=== PATIENT | male | born 1945 | race Caucasian/White ===

== ENCOUNTER 2018-04-18 09:52 | Emergency (ER) | payer MEDICARE, SELFPAY ==
[2018-04-18 09:55] VITALS: BP 136/68; PULSE 70; RESP 20; TEMP 36.9; O2SAT 95
--- NOTE | 2018-04-18 10:57 | W.ED.GENAD ---
Discharge Plan Disposition Patient Disposition: HOME Condition: Stable Discharge Details Chief Complaint: RespSymp Clinical Impression: Sinusitis, URI (upper respiratory infection) Primary Care Provider: TIKA,LOCAL ED Provider: Fidencio Cali Home Meds and New Rx's Prescriptions: New doxycycline hyclate 100 mg capsule 100 mg PO BID Qty: 14 RF: 0 benzonatate 200 mg capsule 200 mg PO TID PRN (Reason: cough) Qty: 30 RF: 0 No Action atorvastatin 40 mg Tablet 40 mg PO HS RF: 0 Discharge Instructions Instructions: Sinusitis (ED), Upper Respiratory Infection (ED) Additional Instructions: Please continue to take [id number] Mucinex and use acetaminophen/Motrin as needed for discomfort or fever. Get plenty of rest and stay well-hydrated during illness. Take anabolic as prescribed and please complete full course of antibiotic and if not improving follow-up with your primary care provider for reassessment. Return for any significant change or worsening of your symptoms Referrals: [facility] Emergency Dept. [Outside] (As needed for reassessment or if not improved) Medical Decision Making Patient presenting to the emergency department for 10 days of cold symptoms. He states nasal congestion, sore throat, cough, and generalized malaise. He has been using ubsi-xel-[id number] cough and cold medication but given that he is use these for 7 days and had no signs of improvement and even within the past 24 hours is still had a mild fever he is presenting to the emergency department. Patient does state history of non-Hodgkin's lymphoma which is in relative remission and that he only receives maintenance chemotherapy every 6 months and has had not had any dose since November. patient has normal vital signs and is in no acute severe distress, appears mildly ill, and is otherwise nontoxic. Physical exam shows maxillary and ethmoid sinus tenderness to palpation otherwise exam findings consistent with URI. Patient has clear lung sounds. Given duration of illness and not having any improvement concern for possible bacterial etiology of cold so place patient on doxycycline twice daily for 1 week and prescribed Tessalon Perles as an antitussive. Patient encouraged to return for any new or significant worsening of symptoms otherwise follow-up with primary care for reassessment 1 week. After discussion of diagnosis and plan of care patient has no further needs, questions, or concerns and states clear understanding to return to the emergency department for any worsening symptoms. HPI General Mode of arrival: ambulatory. Date/Time Provider Initiated Documentation: 04/18/18 10:55. Limitations to Documentation: no limitations. Information obtained by: RN notes reviewed. History of Present Illness 72 year old M presents to the emergency department with the chief complaint of Cough cold symptoms, described as moderate, with intensity rated at 7. Quality is described as aching, and is localized to the head. Patient started experiencing this day(s) (10) and it has been constant. No relieving factors improve symptom(s), No exacerbating factors reported . Patient did receive the following treatments prior to arrival, other (TheraFlu, Mucinex) Related Data Home Medications Medication Instructions Recorded Confirmed atorvastatin 40 mg PO HS 04/18/18 04/18/18 benzonatate 200 mg PO TID PRN #30 cap 04/18/18 doxycycline hyclate 100 mg PO BID #14 cap 04/18/18 Previous Rx's Medication Instructions Recorded benzonatate 200 mg PO TID PRN #30 cap 04/18/18 doxycycline hyclate 100 mg PO BID #14 cap 04/18/18 Allergies Allergy/AdvReac Type Severity Reaction Status Date / Time Penicillins Allergy Unverified 04/18/18 10:00 General Stated Complaint: RespSymp CRICKET: 2 Review of Systems Constitutional Reports body ache(s), Reports chills, Reports fever(s), Reports headache(s) and Reports malaise Eyes Denies eye discharge ENT Reports headache(s), Reports nasal congestion, Reports nasal discharge, Denies neck pain, Reports sinus pressure, Reports sore throat and Denies throat swelling Cardiovascular Denies chest pain and Denies dyspnea Respiratory Reports change in phlegm color, Reports cough, Reports excessive phlegm production and Denies dyspnea Gastrointestinal Denies diarrhea, Reports nausea and Denies vomiting Musculoskeletal Denies joint swelling and Denies neck pain Integumentary/Breasts Denies rash Neurologic Reports headache(s) Allergic/Immunologic Denies throat swelling [facility] Medical History Glaucoma (Chronic) Non Hodgkin's lymphoma (Chronic) Social History Smoking/Tobacco Use Status: Never Exam Const General: cooperative, comfortable and no acute distress Orientation: alert and awake HENIL Head: normal to inspection, normocephalic and atraumatic Ears: hearing grossly normal bilaterally and TM's normal bilaterally General nose exam: external nose normal Face and sinus: no erythema and sinus tenderness ethmoid and maxillary Mouth: oral mucosae normal, no drooling, no muffled voice and no trismus Throat: posterior oropharynx normal, tonsils normal and uvula midline Neck Neck: normal visual inspection, full ROM, no lymphadenopathy, no meningeal signs, trachea midline and supple Resp Effort & Inspection: normal respiratory effort, able to speak in complete sentences and cough Quality of cough: dry Auscultation: clear to auscultation bilaterally Cardio Rate: regular rate Rhythm: regular rhythm Heart Sounds: S1 normal, S2 normal, normal S1 and S2, no click, no gallops, no murmurs and no rubs Skin General skin exam: no rashes or lesions noted and dry skin (warm) Neuro General: alert, awake, oriented x3, gait normal and moves all extremities Cognition: normal cognition Speech: speech normal Course Vital Signs Temperature 36.9 C 04/18/18 09:55 Pulse 70 04/18/18 09:55 Respiratory Rate 20 04/18/18 09:55 Blood Pressure 136/68 04/18/18 09:55 Pulse Oximetry 95 04/18/18 09:55 Temperature 36.9 C 04/18/18 09:55 Temperature Source Skin 04/18/18 09:55 Pulse 70 04/18/18 09:55 Respiratory Rate 20 04/18/18 09:55 Respiratory Effort 04/18/18 09:59 Blood Pressure 136/68 04/18/18 09:55 Pulse Oximetry 95 04/18/18 09:55 Oxygen Delivery Method Room Air 04/18/18 09:55 Oxygen Flow Rate 0 04/18/18 09:55
--- NOTE | 2018-04-18 11:03 | ED.GENADUL_ITS ---
Discharge Plan Disposition Patient Disposition: HOME Condition: Stable Discharge Details Chief Complaint: RespSymp Clinical Impression: Sinusitis, URI (upper respiratory infection) Primary Care Provider: TIKA,LOCAL ED Provider: Fidencio Cali Home Meds and New Rx's Prescriptions: New doxycycline hyclate 100 mg capsule 100 mg PO BID Qty: 14 RF: 0 benzonatate 200 mg capsule 200 mg PO TID PRN (Reason: cough) Qty: 30 RF: 0 No Action atorvastatin 40 mg Tablet 40 mg PO HS RF: 0 Discharge Instructions Instructions: Sinusitis (ED), Upper Respiratory Infection (ED) Additional Instructions: Please continue to take [id number] Mucinex and use acetaminophen/Motrin as needed for discomfort or fever. Get plenty of rest and stay well-hydrated during illness. Take anabolic as prescribed and please complete full course of antibiotic and if not improving follow-up with your primary care provider for reassessment. Return for any significant change or worsening of your symptoms Referrals: [facility] Emergency Dept. [Outside] (As needed for reassessment or if not improved) Medical Decision Making Patient presenting to the emergency department for 10 days of cold symptoms. He states nasal congestion, sore throat, cough, and generalized malaise. He has been using solt-kxh-zkekaev cough and cold medication but given that he is use these for 7 days and had no signs of improvement and even within the past 24 hours is still had a mild fever he is presenting to the emergency department. Patient does state history of non-Hodgkin's lymphoma which is in relative remission and that he only receives maintenance chemotherapy every 6 months and has had not had any dose since November. patient has normal vital signs and is in no acute severe distress, appears mildly ill, and is otherwise nontoxic. Physical exam shows maxillary and ethmoid sinus tenderness to palpation otherwise exam findings consistent with URI. Patient has clear lung sounds. Given duration of illness and not having any improvement concern for possible bacterial etiology of cold so place patient on doxycycline twice daily for 1 week and prescribed Tessalon Perles as an antitussive. Patient encouraged to return for any new or significant worsening of symptoms otherwise follow-up with primary care for reassessment 1 week. After discussion of diagnosis and plan of care patient has no further needs, questions, or concerns and states clear understanding to return to the emergency department for any worsening symptoms. HPI General Mode of arrival: ambulatory . Date/Time Provider Initiated Documentation: 04/18/18 10:55 . Limitations to Documentation: no limitations . Information obtained by: RN notes reviewed . History of Present Illness 72 year old M presents to the emergency department with the chief complaint of Cough cold symptoms, described as moderate, with intensity rated at 7. Quality is described as aching, and is localized to the head. Patient started experiencing this day(s) (10) and it has been constant. No relieving factors improve symptom(s), No exacerbating factors reported . Patient did receive the following treatments prior to arrival, other (TheraFlu , Mucinex) Related Data Home Medications Medication Instructions Recorded Confirmed atorvastatin 40 mg PO HS 04/18/18 04/18/18 benzonatate 200 mg PO TID PRN #30 cap 04/18/18 doxycycline hyclate 100 mg PO BID #14 cap 04/18/18 Previous Rx's Medication Instructions Recorded benzonatate 200 mg PO TID PRN #30 cap 04/18/18 doxycycline hyclate 100 mg PO BID #14 cap 04/18/18 Allergies Allergy/AdvReac Type Severity Reaction Status Date / Time Penicillins Allergy Unverified 04/18/18 10:00 General Stated Complaint: RespSymp CRICKET: 2 Review of Systems Constitutional Reports body ache(s), Reports chills, Reports fever(s), Reports headache(s) and Reports malaise Eyes Denies eye discharge ENT Reports headache(s), Reports nasal congestion, Reports nasal discharge, Denies neck pain, Reports sinus pressure, Reports sore throat and Denies throat swelling Cardiovascular Denies chest pain and Denies dyspnea Respiratory Reports change in phlegm color, Reports cough, Reports excessive phlegm production and Denies dyspnea Gastrointestinal Denies diarrhea, Reports nausea and Denies vomiting Musculoskeletal Denies joint swelling and Denies neck pain Integumentary/Breasts Denies rash Neurologic Reports headache(s) Allergic/Immunologic Denies throat swelling [facility] Medical History Glaucoma (Chronic) Non Hodgkin's lymphoma (Chronic) Social History Smoking/Tobacco Use Status: Never Exam Const General: cooperative, comfortable and no acute distress Orientation: alert and awake HENIL Head: normal to inspection, normocephalic and atraumatic Ears: hearing grossly normal bilaterally and TM's normal bilaterally General nose exam: external nose normal Face and sinus: no erythema and sinus tenderness ethmoid and maxillary Mouth: oral mucosae normal, no drooling, no muffled voice and no trismus Throat: posterior oropharynx normal, tonsils normal and uvula midline Neck Neck: normal visual inspection, full ROM, no lymphadenopathy, no meningeal signs , trachea midline and supple Resp Effort & Inspection: normal respiratory effort, able to speak in complete sentences and cough Quality of cough: dry Auscultation: clear to auscultation bilaterally Cardio Rate: regular rate Rhythm: regular rhythm Heart Sounds: S1 normal, S2 normal, normal S1 and S2, no click, no gallops, no murmurs and no rubs Skin General skin exam: no rashes or lesions noted and dry skin (warm) Neuro General: alert, awake, oriented x3, gait normal and moves all extremities Cognition: normal cognition Speech: speech normal Course Vital Signs Temperature 36.9 C 04/18/18 09:55 Pulse 70 04/18/18 09:55 Respiratory Rate 20 04/18/18 09:55 Blood Pressure 136/68 04/18/18 09:55 Pulse Oximetry 95 04/18/18 09:55 Temperature 36.9 C 04/18/18 09:55 Temperature Source Skin 04/18/18 09:55 Pulse 70 04/18/18 09:55 Respiratory Rate 20 04/18/18 09:55 Respiratory Effort 04/18/18 09:59 Blood Pressure 136/68 04/18/18 09:55 Pulse Oximetry 95 04/18/18 09:55 Oxygen Delivery Method Room Air 04/18/18 09:55 Oxygen Flow Rate 0 04/18/18 09:55
[2018-04-18] MEDS: Benzonatate 100 MG CAP PO (11:08)
[2018-04-18] MEDS: Doxycycline Hyclate 100 MG CAP PO (11:08)
== END 2018-04-18 11:22 | disposition home or self-care (01) ==
PROVIDERS: Emergency Provider Nurse Practitioner Family
DX: J01.90 Acute sinusitis, unspecified (principal); J06.9 Acute upper respiratory infection, unspecified
CPT/HCPCS: 99283

== ENCOUNTER 2021-11-11 09:38 | Emergency (ER) | payer MEDICARE, SELFPAY ==
--- NOTE | 2021-11-11 09:45 | DI.CT_ITS ---
Exam(s) CT HEAD WO EXAM: CT HEAD WO CLINICAL HISTORY: trauma. TECHNIQUE: Imaging Protocol: Axial computed tomography images with coronal and sagittal reformatted images were created and reviewed COMPARISON: No exams were available for comparison FINDINGS: There is laceration and soft tissue swelling over the lateral aspect of the left orbit. No subjacen t fracture evident. Nasal bone deformity is consistent with probable nonacute nasal fracture site. There is no evidence of intracranial hemorrhage, mass effect, or shift of midline structures. There are no extra-axial fluid collections. The ventricles are not enlarged or shifted and there is no blo od within the ventricular system nor within the basal cisterns. IMPRESSION: No acute intracranial findings on this noninfused CT scan of the brain. Left periorbital laceration-hematoma. No acute fractures. Nasal bone deformity is probably chronic nonacute fracture. RADIATION DOSE DELIVERED: 760.35mGy.cm Total DLP DATA REPOSITORY: All CT scans at this facility are submitted to the National Radiology Data Registry (NRDR) Dose Index Registry (DIR) with the [employer] ([employer]). RADIATION OPTIMIZATION: All CT scans at this facility use at least one of these dose optimization te chniques: automated exposure control; mA and/or kV adjustment per patient size (includes targeted exa ms where dose is matched to clinical indication); or iterative reconstruction.
--- NOTE | 2021-11-11 09:48 | W.ED.GENAD ---
Discharge Plan Disposition Patient Disposition: HOME Discharge Details Clinical Impression: Fall, Laceration of face Primary Care Provider: Leonor,Local ED Provider: Bautista Menendez Home Meds and New Rx's Prescriptions: New doxycycline monohydrate 100 mg capsule 100 mg PO BID Qty: 14 0RF No Action atorvastatin 40 mg Tablet 40 mg PO HS doxycycline hyclate 100 mg capsule 100 mg PO BID Qty: 14 0RF benzonatate 200 mg capsule 200 mg PO TID PRN (Reason: cough) Qty: 30 0RF Discharge Instructions Instructions: Facial Laceration (ED) Additional Instructions: Please take the antibiotic as prescribed. Apply ice to the affected area few times a day for comfort and to decrease inflammation. You may take Tylenol or Motrin if he has pain. Suture removal in 7 days . Return Medical Decision Making 76-year-old who sustained a fall last night. he did sustain a laceration to the left catholic.. please see procedure note for closure of this wound. Mechanical fall. No syncope. no concussion symptoms. Negative Head CT. Isolated injury to the rt tempotral area. HPI General Date/Time Provider Initiated Documentation: 11/11/21 09:48. HPI Narrative: 76-year-old gentleman presents to the emergency room for evaluation of left-sided head laceration. He states that approximately midnight last night he got up to go to the bathroom. He believes that he was unsteady on his feet and tripped going into the bathroom hitting the left side of his head, catholic area, onto the door handle. He does not believe that he lost consciousness. He proceeded to using the bathroom and went back to bed. Upon waking this morning he noticed a laceration. He did feel mildly nauseous when he was cleaning it. Otherwise he has had no headaches. No focal weakness, no paresthesias. No palpitations or shortness of breath. No exacerbating factors. Bleeding controlled with pressure. Related Data Home Medications Medication Instructions Recorded Confirmed atorvastatin 40 mg tablet 40 mg PO HS 04/18/18 11/11/21 benzonatate 200 mg capsule 200 mg PO TID PRN cough #30 caps 04/18/18 doxycycline hyclate 100 mg capsule 100 mg PO BID #14 caps 04/18/18 doxycycline monohydrate 100 mg 100 mg PO BID #14 caps 11/11/21 capsule Previous Rx's Medication Instructions Recorded benzonatate 200 mg capsule 200 mg PO TID PRN cough #30 caps 04/18/18 doxycycline hyclate 100 mg capsule 100 mg PO BID #14 caps 04/18/18 doxycycline monohydrate 100 mg 100 mg PO BID #14 caps 11/11/21 capsule Allergies Allergy/AdvReac Type Severity Reaction Status Date / Time Penicillins Allergy Unverified 11/11/21 09:52 General CRICKET: 2 Review of Systems Narrative: Constitutional negative for fever or chills. Negative for malaise and fatigue. HEENT negative Cardiovascular no palpitation no shortness of breath, no chest pain Respiratory no cough no shortness of breath GI see HPI MSK no myalgias or arthralgias Skin see HPI Neuro no headaches no focal weakness no paresthesias Hematological not on blood thinners Allergic neg PFSH All Active Problems (Updated 11/11/21 @ 10:56 by Bautista Menendez MD) Fall (Acute) Laceration of face (Acute) Medical History (Updated 11/11/21 @ 10:56 by Bautista Menendez MD) Glaucoma Non Hodgkin's lymphoma Social History Smoking/Tobacco Use Status: Never Smoking risk assessment performed?: Yes Alcohol Intake: current Alcohol Intake frequency: 0-2 drinks per day Drug use: Never Substance use type: does not use Do you feel safe at home: Yes Do you feel safe in your relationship?: Yes Exam Narrative Exam Narrative: Awake alert oriented x3 calm cooperative no acute distress pleasant PERRLA EOMI MMM anicteric, linear 2 cm laceration on the temporal area on the left. No active bleeding. Supple neck Respiratory normal work of breathing. Cardiovascular normal cap refill Skin see HPI Neuro 2-12 grossly intact. Normal gait. Extremities however 5 bilateral strength Psych mood and affect normal Procedures Laceration Laceration 1: Site: face (left temporal area) Size (cm): 2.5 Local Anesthetic: Lidocaine 2% Amount of anesthesia used (mL): 3 Pre-repair: wound explored and irrigated extensively Skin layer closed with: other (prolene) Size (cm): 6-0 Number of sutures: 4
[2021-11-11 09:49] VITALS: BP 176/75; PULSE 54; TEMP 36.1; O2SAT 99
--- NOTE | 2021-11-11 11:04 | DI.VRAD_ITS ---
PROCEDURE INFORMATION: Exam: CT Head Without Contrast Exam date and time: 11/11/2021 10:15 AM Age: 76 years old Clinical indication: Other: Trauma, fall hit left frontal lobe TECHNIQUE: Imaging protocol: Computed tomography of the head without contrast. Radiation optimization: All CT scans at this facility use at least one of these dose optimization techniques: automated exposure control; mA and/or kV adjustment per patient size (includes targeted exams where dose is matched to clinical indication); or iterative reconstruction. COMPARISON: No relevant prior studies available. FINDINGS: Brain: No acute intracranial hemorrhage, midline shift or mass effect. Age-related atrophy. Periventricular and subcortical white matter hypodensities, nonspecific and likely related to chronic microvascular ischemic changes. Cerebral ventricles: Ventricular enlargement secondary to age-related atrophy. Paranasal sinuses: Minimal paranasal sinus disease. Mastoid air cells: Visualized mastoid air cells are well aerated. Bones/joints: No acute abnormality. Soft tissues: Left periorbital laceration/hematoma. Vasculature: Intracranial arterial calcifications. IMPRESSION: No acute intracranial abnormality. Left periorbital laceration/hematoma. No acute fracture. Additional findings as discussed above. Dictated and Authenticated by: Melissa Hooper MD. Ordering:JUAN MANUEL Baum MD
[2021-11-11 11:25] VITALS: BP 132/86; PULSE 70; RESP 18; TEMP 37; O2SAT 95
== END 2021-11-11 11:14 | disposition home or self-care (01) ==
PROVIDERS: Emergency Provider Emergency Medicine
DX: S01.81XA Laceration without foreign body of other part of head, initial encounter (principal); W01.198A Fall on same level from slipping, tripping and stumbling with subsequent striking against other object, initial encounter
CPT/HCPCS: 12011; 99284; 70450; 99283

== ENCOUNTER 2021-11-18 13:05 | Emergency (ER) | payer MEDICARE, SELFPAY ==
[2021-11-18 13:09] VITALS: BP 138/63; PULSE 52; RESP 16; TEMP 36.4; O2SAT 97
--- NOTE | 2021-11-18 13:14 | ED.GENADUL_ITS ---
Discharge Plan Disposition Patient Disposition: HOME Condition: Stable Discharge Details Clinical Impression: Encounter for removal of sutures Primary Care Provider: Quincy Culver ED Provider: Bennett Dozier Home Meds and New Rx's Prescriptions: Continued atorvastatin 40 mg Tablet 40 mg PO HS doxycycline hyclate 100 mg capsule 100 mg PO BID Qty: 14 0RF benzonatate 200 mg capsule 200 mg PO TID PRN (Reason: cough) Qty: 30 0RF doxycycline monohydrate 100 mg capsule 100 mg PO BID Qty: 14 0RF Discharge Instructions Additional Instructions: If you have spreading redness, yellow/white discharge or severe pain return to the emergency department Medical Decision Making 76 yo male here for suture removal. He had them placed 7 days ago just lateral to the left orbit. Denies pain, redness, discharge. He has a well healed wound with sutures in place lateral to the left orbit, no tenderness, no erythema, no discharge noted. Nursing will remove the stitches and return precautions given Differential Diagnosis Differential Diagnosis: suture removal Medical Records Medical records reviewed: Yes I reviewed the patient's medical records. HPI General Mode of arrival: ambulatory . Date/Time Provider Initiated Documentation: 11/18/21 13:06 . Limitations to Documentation: no limitations . Information obtained by: patient . History of Present Illness 76 year old M presents to the emergency department with the chief complaint of suture removal, described as moderate, Patient started experiencing this day(s) (7) and it has been constant. No relieving factors improve symptom(s), No exacerbating factors reported . Patient notes no other symptoms.. Related Data Home Medications Medication Instructions Recorded Confirmed atorvastatin 40 mg tablet 40 mg PO HS 04/18/18 11/11/21 benzonatate 200 mg capsule 200 mg PO TID PRN cough #30 caps 04/18/18 doxycycline hyclate 100 mg capsule 100 mg PO BID #14 caps 04/18/18 doxycycline monohydrate 100 mg 100 mg PO BID #14 caps 11/11/21 capsule Previous Rx's Medication Instructions Recorded benzonatate 200 mg capsule 200 mg PO TID PRN cough #30 caps 04/18/18 doxycycline hyclate 100 mg capsule 100 mg PO BID #14 caps 04/18/18 doxycycline monohydrate 100 mg 100 mg PO BID #14 caps 11/11/21 capsule Allergies Allergy/AdvReac Type Severity Reaction Status Date / Time Penicillins Allergy Unverified 11/18/21 13:12 General Stated Complaint: SutureRem CRICKET: 5 Review of Systems All systems reviewed & are unremarkable except as noted in HPI and below Constitutional Constitutional: Denies chills, Denies fever(s) and Denies weakness Eyes Eyes: Denies loss of vision Cardiovascular Cardiovascular: Denies chest pain and Denies dyspnea Respiratory Respiratory: Denies dyspnea Gastrointestinal Gastrointestinal: Denies vomiting Integumentary/Breasts Skin/Breast: Denies rash Neurologic Neurologic: Denies loss of vision and Denies weakness PFSH All Active Problems (Updated 11/18/21 @ 13:15 by Bennett Dozier MD) Fall (Acute) Laceration of face (Acute) Encounter for removal of sutures (Acute) Medical History (Updated 11/18/21 @ 13:15 by Bennett Dozier MD) Glaucoma Non Hodgkin's lymphoma Social History Smoking/Tobacco Use Status: Never Smoking risk assessment performed?: Yes Alcohol Intake: current Alcohol Intake frequency: 0-2 drinks per day Drug use: Never Substance use type: does not use Do you feel safe at home: Yes Do you feel safe in your relationship?: Yes Exam Const General: no acute distress Orientation: alert HENMT Head: no palpable skull fracture Ears: external ears normal General nose exam: external nose normal Mouth: moist mucous membranes Eyes General: appearance normal, both eyes and all related structures Neck Neck: normal visual inspection Resp Effort & Inspection: normal respiratory effort and able to speak in complete sentences Cardio Rate: regular rate Skin General skin exam: no rashes or lesions noted Neuro General: patient alert and patient oriented x3 Extrem General: normal to inspection Psych Mental Status: mental status grossly normal Course Vital Signs Vital signs: Vital Signs Temperature 36.4 C L 11/18/21 13:09 Pulse 52 L 11/18/21 13:09 Respiratory Rate 16 11/18/21 13:09 Blood Pressure 138/63 11/18/21 13:09 Pulse Oximetry 97 11/18/21 13:09 Temperature 36.4 C L 11/18/21 13:09 Pulse 52 L 11/18/21 13:09 Respiratory Rate 16 11/18/21 13:09 Respiratory Effort 11/18/21 13:12 Blood Pressure 138/63 11/18/21 13:09 Pulse Oximetry 97 11/18/21 13:09 Oxygen Delivery Method Room Air 11/18/21 13:09 Oxygen Flow Rate 0 11/18/21 13:09
== END 2021-11-18 13:21 | disposition home or self-care (01) ==
PROVIDERS: Emergency Provider Emergency Medicine; PCP Family Medicine
DX: S01.81XD Laceration without foreign body of other part of head, subsequent encounter (principal); W01.198D Fall on same level from slipping, tripping and stumbling with subsequent striking against other object, subsequent encounter; Z48.02 Encounter for removal of sutures